=== PATIENT | male | born 2000 | race Caucasian/White ===

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

== ENCOUNTER 2021-01-18 19:19 | Emergency (ER) | payer OTHER ==
[~2021-01-18] VITALS: Ht 167.6 cm; Wt 95.5 kg
[2021-01-19 00:01] VITALS: BP 120/71
[2021-01-19] MEDS ORDERED: IBUPROFEN 800 MG TABLET PO ONE (00:15)
== END 2021-01-19 00:35 | disposition home or self-care (01) ==
LOC: EMS 19:19
DX: S60.221A Contusion of right hand, initial encounter (principal); W22.01XA Walked into wall, initial encounter; Y93.89 Activity, other specified; Y92.89 Other specified places as the place of occurrence of the external cause; Y99.8 Other external cause status
CPT/HCPCS: 99283